=== PATIENT | female | born 1985 | race Caucasian/White ===

== ENCOUNTER 2018-09-09 09:10 | Emergency (ER) | payer MEDICAID, SELFPAY ==
[~2018-09-09] VITALS: Ht 170.2 cm; Wt 115.0 kg
[2018-09-09 09:23] VITALS: BP 120/66
== END 2018-09-09 11:07 | disposition home or self-care (01) ==
LOC: ER 09:20
DX: J11.1 Influenza due to unidentified influenza virus with other respiratory manifestations (principal)
CPT/HCPCS: 99283